=== PATIENT | male | born 1955 | race Caucasian/White ===

== ENCOUNTER 2019-10-08 10:57 | Emergency (ER) | payer MEDICARE, BC ==
--- NOTE | 2019-10-08 11:47 | CR ---
[id number] RAD/RAD Knee Left 3V EXAM: RAD Knee Left 3V CLINICAL DATA: PREPATELLAR SWELLING COMPARISON: NO PREVIOUS SIMILAR EXAM IS AVAILABLE. FINDINGS: No fracture or dislocation is seen There are degenerative changes There is no obvious prepatellar effusion. IMPRESSION: NO INTRINSIC BONY ABNORMALITY Conrado Jack MD 10/08/19 1146 Thank you for allowing us to participate in the care of your patient.
--- NOTE | 2019-10-08 12:21 | EDM.PDOC ---
ED HPI GENERAL MEDICAL PROBLEM - General Chief Complaint: Lower Extremity Injury/Pain Stated Complaint: knee swelling Time Seen by Provider: 10/08/19 11:09 Source of Information: Reports: Patient History Limitations: Reports: No Limitations - History of Present Illness INITIAL COMMENTS - FREE TEXT/NARRATIVE: Patient comes emergency department today with complaints of swelling to his left knee. He has noticed over the past 2 days that he has developed some swelling just above his left kneecap. Really does not hurt there is no burning sensation. He does not recall any recent injury or trauma or increased physical activity to his left knee other than working in the garage on a cement floor much more than normal. He is usually very active gentleman who next 3 to 4 miles a day already. This really has not limited his ambulation at the time. Fever no chills. no Other symptoms. Left Knee Pain Score (Numeric/FACES): 3 Social & Family History - Family History Family Medical History: Noncontributory - Tobacco Use Smoking Status *Q: Former Smoker Used Tobacco, but Quit: Yes Month/Year Tobacco Last Used: 2004 Second Hand Smoke Exposure: No - Alcohol Use Days Per Week of Alcohol Use: 7 Number of Drinks Per Day: 3 Total Drinks Per Week: 21 - Recreational Drug Use Recreational Drug Use: No Review of Systems - Review of Systems Review Of Systems: Comprehensive ROS is negative, except as noted in HPI. ED EXAM, GENERAL - Physical Exam Exam: See Below Exam Limited By: No Limitations General Appearance: Alert, WD/WN Respiratory/Chest: No Respiratory Distress Cardiovascular: Normal Peripheral Pulses Extremities: Normal Range of Motion, Non-Tender, No Pedal Edema, Normal Capillary Refill ([place]ation of the left knee shows some prepatellar swelling equally bilaterally. There is no erythema induration or warmth. There is no breaks in the skin. There is no joint effusion. Varus and valgus stress was negative. Lockman and anterior drawer sign is negative. Normal full range of motion of the knee.). No: Normal Inspection Neurological: Alert, Oriented, Normal Cognition, No Motor/Sensory Deficits Skin Exam: Warm, Dry, Intact, Normal Color, No Rash Course - Vital Signs Last Recorded V/S: Last Vital Signs Temp 36.6 C 10/08/19 11:09 Pulse 73 10/08/19 11:09 Resp 18 10/08/19 11:09 BP 185/87 H 10/08/19 11:09 Pulse Ox 96 10/08/19 11:09 - Radiology Interpretation Free Text/Narrative:: X-ray of the left knee is negative for any osseous abnormality. Per radiology - Re-Assessments/Exams Free Text/Narrative Re-Assessment/Exam: 10/08/19 18:49 Explain to the patient that this is really the presentation of prepatellar bursitis. We will treat him conservatively at this time with an Logan wrap and decreased range of motion in physical activity. He is comfortable with this plan his questions are answered. Departure - Departure Time of Disposition: 12:19 Disposition: Home, Self-Care 01 Clinical Impression: Patellar bursitis of left knee - Discharge Information Instructions: Prepatellar Bursitis Rehab-SportsMed, Pain Medicine Instructions , [id number], Heat Therapy, [id number] Referrals: Eliazar Birch MD [Primary Care Provider] - Forms: ED Department Discharge Additional Instructions: Tylenol and or Ibuprofen as needed for pain. Logan wrap until resolution. Try to reduce the movement and trauma to the knee. Ice or Heat which ever works the best. Return to the ED if new or worsening symptoms. Follow up with PCP in the next 7 days if not improving sooner if worse or new symptoms develops. Sepsis Event Note - Evaluation Sepsis Screening Result: No Definite Risk - Focused Exam Vital Signs: Vital Signs Temp Pulse Resp BP Pulse Ox 10/08/19 11:09 36.6 C 73 18 185/87 H 96 Date Exam was Performed: 10/08/19 Time Exam was Performed: 18:51
== END 2019-10-08 12:25 | disposition home or self-care (01) ==
LOC: VM.ED 10:57
DX: M70.42 Prepatellar bursitis, left knee (principal); Z87.891 Personal history of nicotine dependence
CPT/HCPCS: 73562-LT; 99283-25; 99283-GF

== ENCOUNTER 2021-02-01 07:57 | Day surgery (SDC) | payer MEDICARE, BC ==
[2021-02-01] MEDS: Lactated Ringers 1,000 ML IV SCH (08:22)
[2021-02-01] MEDS ORDERED: Propofol 200 MG/20 ML SDV ONE ×2 (08:55→11:27)
[2021-02-01] MEDS ORDERED: fentaNYL 100 MCG/2 ML SDV ONE (08:55)
--- NOTE | 2021-02-01 12:52 | OR ---
PREOPERATIVE DIAGNOSIS: Screening colonoscopy. POSTOPERATIVE DIAGNOSIS: Colon polyps. PROCEDURE PERFORMED: Total flexible colonoscopy with biopsies. ANESTHESIA: MAC anesthesia. COMPLICATIONS: None. BLOOD LOSS: Minimal. FINDINGS: 1. Cecal polyp, 3 mm, cold forceps. 2. Sigmoid polyp, 2 mm, cold forceps. 3. Rectal polyp, 5 mm, cold snare. START TIME: 1116. CECUM TIME: 1123. STOP TIME: 1134. BOWEL PREP: [place] class 2. INDICATION FOR PROCEDURE: Mr. Willett is a 65-year-old male here for screening colonoscopy. His last scope was in 2012. He has had no bloody or dark black stools. He denies a family history of colon cancer. DETAILS OF PROCEDURE: Informed consent was obtained. The patient was brought to the procedure room and placed in the left lateral decubitus position. MAC anesthesia was induced by Anesthesia colleagues. Colonoscope was introduced into the rectum and advanced all the way to the cecum. Appendiceal orifice and ileocecal valve were photographed. The colonoscope was then slowly withdrawn. No pathology was identified except for what is mentioned in the above findings section. A retroflexed view was obtained and the colonoscope was withdrawn. The patient was awoken from MAC anesthesia by Anesthesia colleagues without incident. RKM: 02/01/2021 11:38:16 MODL: 02/01/2021 11:54:54 /[id number]
== END 2021-02-01 12:38 | disposition home or self-care (01) ==
LOC: VM.SDS 07:57
PROVIDERS: ATTEND Student in an Organized Health Care Education/Training Program
DX: Z12.11 Encounter for screening for malignant neoplasm of colon (principal); D12.0 Benign neoplasm of cecum; D12.5 Benign neoplasm of sigmoid colon; D12.8 Benign neoplasm of rectum; I10 Essential (primary) hypertension; E78.5 Hyperlipidemia, unspecified; M17.12 Unilateral primary osteoarthritis, left knee; Z86.010 Personal history of colon polyps; Z91.030 Bee allergy status; Z79.899 Other long term (current) drug therapy; Z87.891 Personal history of nicotine dependence
CPT/HCPCS: 00811; 45380; 45385; J2704; J3010; J7120; 88305

== ENCOUNTER 2022-03-10 10:14 | Emergency (ER) | payer MEDICARE, BC ==
[2022-03-10] MEDS ORDERED: diphenhydrAMINE 50 MG/ML SDV IM ONE (10:32)
[2022-03-10] MEDS ORDERED: Loratadine 10 MG Tab PO ONE (10:33)
== END 2022-03-10 11:01 | disposition home or self-care (01) ==
LOC: MERGE 10:14 → VM.ED 10:14
DX: T63.441A Toxic effect of venom of bees, accidental (unintentional), initial encounter (principal); I10 Essential (primary) hypertension; Z79.899 Other long term (current) drug therapy; Z72.0 Tobacco use
CPT/HCPCS: 96372; 99282; 99283; A9270-GY; J1200

== ENCOUNTER 2024-11-03 09:46 | Day surgery (SDC) | payer MEDICARE, BC ==
[~2024-11-03 09:46] MED LIST: Lactated Ringers 1,000 ML IV SCH
[2024-11-03] MEDS: Lactated Ringers 1,000 ML IV SCH (10:08)
[2024-11-03] MEDS ORDERED: Midazolam 1 MG/ML 2 ML SDV ONE (11:13)
[2024-11-03] MEDS ORDERED: fentaNYL 100 MCG/2 ML SDV ONE (11:13)
[2024-11-03] MEDS ORDERED: Propofol 200 MG/20 ML SDV ONE (11:15)
== END 2024-11-03 12:43 | disposition home or self-care (01) ==
LOC: VM.SDS 09:46
PROVIDERS: ATTEND Family Medicine
DX: Z12.11 Encounter for screening for malignant neoplasm of colon (principal); D12.0 Benign neoplasm of cecum; D12.6 Benign neoplasm of colon, unspecified; K57.30 Diverticulosis of large intestine without perforation or abscess without bleeding; Z86.0101 Personal history of adenomatous and serrated colon polyps; I10 Essential (primary) hypertension; Z79.899 Other long term (current) drug therapy
CPT/HCPCS: 00811; 45380; 88305; J2250; J2704; J3010; J7120